=== PATIENT | male | born 2000 ===

== ENCOUNTER 2021-12-25 16:30 | Emergency (ER) | payer BC ==
[2021-12-25] MEDS ORDERED: Acetaminophen/oxyCODONE 325-5 MG Tab PO ONE (17:34)
[2021-12-25] MEDS ORDERED: Ibuprofen 600 MG Tab PO ONE (17:34)
== END 2021-12-25 21:55 | disposition home or self-care (01) ==
LOC: MW.ED 16:30
DX: N50.811 Right testicular pain (principal); N50.812 Left testicular pain; N43.3 Hydrocele, unspecified
CPT/HCPCS: 76870; 81001; 93976; 99284; A9270